=== PATIENT | male | born 1965 ===

== ENCOUNTER → 2020-02-26 13:52 | Outpatient (BNVA) | payer OTHER, SELFPAY | PROVIDERS: PCP Internal Medicine; Referring Provider Internal Medicine; Visit Provider Nurse Practitioner Family | DX: I48.0 Paroxysmal atrial fibrillation (principal); G47.33 Obstructive sleep apnea (adult) (pediatric); I51.7 Cardiomegaly; E66.9 Obesity, unspecified; Z68.36 Body mass index [BMI] 36.0-36.9, adult; Z79.899 Other long term (current) drug therapy | CPT/HCPCS: 99214 ==

== ENCOUNTER → 2021-03-15 14:33 | Outpatient (BNVA) | payer OTHER, SELFPAY | PROVIDERS: PCP Internal Medicine; Referring Provider Internal Medicine; Visit Provider Internal Medicine Cardiovascular Disease | DX: I51.7 Cardiomegaly (principal); I48.0 Paroxysmal atrial fibrillation; G47.33 Obstructive sleep apnea (adult) (pediatric); E66.9 Obesity, unspecified; Z68.36 Body mass index [BMI] 36.0-36.9, adult; Z99.89 Dependence on other enabling machines and devices; Z79.899 Other long term (current) drug therapy | CPT/HCPCS: 93005; 99212 ==

== ENCOUNTER → 2021-05-12 12:55 | Outpatient (REF) | payer OTHER, SELFPAY ==
--- NOTE | 2021-05-12 12:57 | CA_ITS ---
Transthoracic Echocardiogram Patient (Last, First, Middle): Naga Yusuf S Gender: Male Date of : 1965 Age: 56 Procedure Date: 05/12/2021 Procedure Type: Transthoracic Echocardiogram Location: OP Height: 172.72 cm Weight: 107.05 kg BSA: 2.19 m2 Heart Rate: bpm BP: 138 / 70 mmHg Ict Educator: BRIT Referring MD: Zachary Vital MD Symptoms: I48.0 - Paroxysmal atrial fibrillation Study Quality: Good ECG Rhythm: Sinus Conclusions: - The left ventricular systolic function is normal. The calculated ejection fraction is 65% by biplane method. - No obvious valvular pathology seen on this study. Findings Left Ventricle Normal left ventricular cavity size. The left ventricular systolic function is normal. The calculated ejection fraction is 65% by biplane method. There is no evidence of regional wall motion abnormalities. Diastolic function is normal for age. There is mild septal and mild basal asymmetric hypertrophy. Right Ventricle Normal right ventricular cavity size and systolic function. Atria Both atria are normal in size. Aortic Valve There is a normal trileaflet aortic valve. There is no aortic valve stenosis. There is no aortic valve regurgitation. Mitral Valve The mitral valve appears normal. There is trace mitral valve regurgitation. There is no mitral valve stenosis. Pulmonic Valve The pulmonic valve was not well visualized. Tricuspid Valve Normal tricuspid valve structure. There is trace tricuspid valve regurgitation. The pulmonary artery systolic pressure is normal. Great Vessels The aortic annulus, sinuses of valsalva, and asc aorta are normal in size. Venous The inferior vena cava is normal in size and collapses greater than 50% with inspiration. Pericardium/Pleural There is no evidence of pericardial effusion. Prior Study Comparison No significant change compared to prior study dated: 02/06/2018. Recommendations, Care & Conclusions No obvious valvular pathology seen on this study. Measurements 2D Linear Measurements IVSd: 1.03 0.6-0.9/0.6-1.0 cm LVIDd: 4.31 3.9-5.3/4.2-5.9 cm LVIDd Index: 1.97 2.4-3.2/2.2-3.1 cm/m2 LVIDs: 2.46 2.0-3.6 cm LVPWd: 0.86 0.7-1.1 cm Ao Root: 3.40 2.1-3.5 cm LA Diam: 3.10 2.7-3.8/3.0-4.0 cm LAIDs Index: 1.42 1.5-2.3 cm/m2 LV Mass: 164.00 67-162/88-224 g LV Mass Index: 74.88 43-95/49-115 g/m2 LVOT Diam: 2.00 3.0+(-)1.3 cm 2D Systolic Function EF 4C: 57.80 >55% EF 2C: 69.80 >55% EF BiP: 64.50 >55% Mitral Valve MV Pk E: 0.84 MV PK A: 0.69 MV Decel Time: 275.00 E/A: 1.20 E'Lateral: 9.90 E'Medial: 8.81 E/E' Med: 9.50 E/E' Lat: 8.40 PHT: 80.00 MVA PHT: 2.75 Decel [place]: 3.04 Aortic Valve AoV Pk Noe: 1.43 AoV Mn Noe: 0.94 AoV VTI: 0.30 AoV Pk Grad: 8.00 Aov Mn Grad: 4.00 ERIC Cont.VTI: 2.33 LVOT LVOT Pk Noe: 1.22 LVOT Mn Noe: 0.72 LVOT VTI: 0.22 LVOT Pk Grad: 6.00 LVOT Mn Grad: 3.00 LVOT Diam: 2.00 LVOT Area: 3.14 Diastolic Function MV Pk E: 0.84 MV Pk A: 0.69 E/A: 1.20 E'Medial: 8.81 E/E' Med: 9.50 E' Laterial: 9.90 E/E' Lat: 8.40 Right Ventricle TAPSE (mm): 2.44 TVS' Noe: 13.70 Tricuspid Valve TR Pk Noe: 1.68 TR Pk Grad: 11.00 RA Press: 3.00 RVSP: 14.00 Great Vessels Aorta Ao Root-2D: 3.40 2.0-3.7 cm Ao Asc: 3.00 2.1-3.4 cm Ao Arch: 2.80 Updated in Other Vendor System with Status of Final Ralf Rhodes MD electronically signed on 05/14/2021 2:33:32 PM with status of Final
== END ==
LOC: HO.CARD 12:55
PROVIDERS: Visit Provider Internal Medicine Cardiovascular Disease
DX: I48.0 Paroxysmal atrial fibrillation (principal)
CPT/HCPCS: 93306

== ENCOUNTER 2021-05-27 10:59 | Outpatient (REF) | payer OTHER, SELFPAY ==
[2021-05-27 12:00] LABS: Binax Internal Control QC Valid; Binax Now Covid-19 Ag Positive (Negative)
== END 2021-05-27 11:00 | disposition home or self-care (01) ==
LOC: HO.LAB 10:59
PROVIDERS: Visit Provider Internal Medicine
DX: Z20.822 Contact with and (suspected) exposure to COVID-19 (principal)
CPT/HCPCS: 36415; C9803

== ENCOUNTER → 2022-03-16 14:25 | Outpatient (BNVA) | payer OTHER, SELFPAY | PROVIDERS: Visit Provider Internal Medicine Cardiovascular Disease | DX: I48.0 Paroxysmal atrial fibrillation (principal) | CPT/HCPCS: 93005; 99212 ==

== ENCOUNTER 2024-02-18 14:49 | Outpatient (AMB) | payer OTHER, SELFPAY ==
--- NOTE | 2024-02-18 14:56 | MHC.OFFVIS ---
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 He said he lost primary care physician was not able to come for follow-up. He is taking his metoprolol, today is the last day. He has been using his CPAP regularly. He has no cardiac symptoms whatsoever. Continues to participate in regular physical activity but not regular exercise. He has not been able to lose much weight. Denies any exertional chest pain, shortness of breath. Denies any heart failure syndrome. Denies any prolonged palpitation irregular heartbeat. [facility] Medical History Obesity LVH (left ventricular hypertrophy) BRUNO (obstructive sleep apnea) Paroxysmal atrial fibrillation Family History Father Diabetes Mother HTN (hypertension) Social History Patient Tobacco Use Status: Never used Tobacco Review of Systems Const Denies chills, Denies fatigue, Denies fever(s), Denies frequent falls, Denies weakness, Denies weight gain and Denies weight loss ENT Denies dizziness Card Denies chest pain, Denies leg edema, Denies lightheadedness, Denies palpitations, Denies dyspnea, Denies dyspnea on exertion, Denies orthopnea and Denies other (loss of consciousness) Resp Denies cough, Denies dyspnea and Denies dyspnea on exertion GI Denies hematochezia and Denies change in stool character Musc Denies abnormal gait, Denies muscle weakness, Denies numbness, Denies radiating pain into limb and Denies tingling Neuro Denies abnormal gait, Denies dizziness, Denies frequent falls, Denies numbness, Denies tingling and Denies weakness Endo Denies fatigue and Denies palpitations Physical Exam Vital Signs: Last Vital Signs Pulse 69 02/18/24 14:57 BP 124/80 02/18/24 14:57 BMI result Body Mass Index 35.9 Const General: cooperative, healthy appearing, comfortable and no acute distress HEENT Head: Yes normal to inspection Eyes Sclerae: sclerae normal Neck Neck: Yes normal visual inspection and Yes no JVD Carotids: normal carotid upstroke Chest Chest palpation & inspection: normal inspection of the chest Resp Effort & Inspection: normal respiratory effort Auscultation: clear to auscultation bilaterally, no crackles, no rales, no rhonchi and no wheezes Cardio Jugular venous distension: no JVD Rate: regular rate Rhythm: regular rhythm Heart sounds: S1 normal heart sound present, S2 normal heart sound present, no gallops, no murmurs and no rubs Peripheral pulses: Peripheral pulses 2+ throughout GI Inspection: Yes normal to inspection Skin General skin exam: no rashes or lesions noted Extrem General: Yes normal to inspection, No no pedal edema and No calf tenderness Office Procedures EKG Details: EKG shows normal sinus rhythm with moderate voltage criteria for LVH [id number], Complete Assessment & Plan Assessment & Plan (1) Paroxysmal atrial fibrillation: Comment: History of paroxysmal atrial fibrillation, currently suppressed with metoprolol. Last echo 02/06/2018 shows normal EF, no valve abnormalities He had felt heart palpitations in the past with AFib. None in the last year. EKG today confirms sinus rhythm. Continue on metoprolol at current dose. Chads Vasc score of 0. Full anticoagulation is not indicated. Discussed probable future anticoagulation use with him. Continue aspirin at present. Code(s): I48.0 - Paroxysmal atrial fibrillation Category: Medical Plan: Highly symptomatic paroxysmal atrial fibrillation without any obvious clinical recurrence. Has done extremely well with rhythm control approach will continue pursue rhythm control approach. No indication for antiarrhythmic drug therapy at this point time. Continue metoprolol therapy. Avoidance of stimulants was discussed. CPAP therapy is the most beneficial to him with much improved overall quality of life. Continue CPAP therapy. Last echocardiogram showed no significant evidence of LVH by echocardiogram could have improved as a result of CPAP therapy as well. He is encouraged to continue to participate in regular physical activity and participate in weight loss program. Avoidance of stimulants was discussed. There is no indication for aspirin therapy in his been advised to discontinue the same. Will obtain an echocardiogram near future. Will follow up in the clinic in 1 year's time, sooner p.r.n.. Thank you for allowing me to partake in his care Orders: Orders CA echo transthoracic complete Today I48.0 - Paroxysmal atrial fibrillation Medications: Refilled metoprolol succinate ER keep cardiology appnt on 02/18/24 25 mg PO DAILY 90 tabs 3RF Coding Level of Care Code Est Pt Level 4 (02965) Diagnoses Paroxysmal atrial fibrillation I48.0 CPT Codes EKG - CPT: 22836-[id number], Complete ([id number])
[2024-02-18 14:57] VITALS: BP 124/80; PULSE 69; BMI 35.9
== END 2024-02-18 15:11 | disposition home or self-care (01) ==
PROVIDERS: PCP Internal Medicine; Visit Provider Internal Medicine Cardiovascular Disease
DX: I48.0 Paroxysmal atrial fibrillation (principal)
CPT/HCPCS: 93010; 99214

== ENCOUNTER → 2024-02-18 14:49 | Outpatient (BNVA) | payer MEDICAID, SELFPAY | PROVIDERS: PCP Internal Medicine; Visit Provider Internal Medicine Cardiovascular Disease | DX: I48.0 Paroxysmal atrial fibrillation (principal) | CPT/HCPCS: 93005; 99212 ==

== ENCOUNTER → 2024-03-06 14:50 | Outpatient (REF) | payer OTHER, SELFPAY ==
--- NOTE | 2024-03-06 14:53 | CA_ITS ---
Transthoracic Echocardiogram Patient (Last, First, Middle): Naga Yusuf S Gender: Male Date of : 1965 Age: 59 Procedure Date: 03/06/2024 Procedure Type: Transthoracic Echocardiogram Location: OP Height: 170. cm Weight: 106.6 kg BSA: 2.16 m2 Heart Rate: 68 bpm BP: 110 / 75 mmHg Cone Tender: KRISTIAN Referring MD: Zachary Vital MD Symptoms: I48.0 - Paroxysmal atrial fibrillation Study Quality: Adequate ECG Rhythm: Sinus Conclusions: - The left ventricular systolic function is normal. The calculated ejection fraction is 63% by biplane method. - No obvious valvular pathology seen on this study. Findings Left Ventricle Normal left ventricular cavity size. There is mildly increased left ventricular wall thickness. The left ventricular systolic function is normal. The calculated ejection fraction is 63% by biplane method. There is no evidence of regional wall motion abnormalities. Diastolic function is normal for age. LV peak GLS -21.7%. Right Ventricle Normal right ventricular cavity size and systolic function. Atria Both atria are normal in size. Aortic Valve There is a normal trileaflet aortic valve. There is no aortic valve stenosis. There is no aortic valve regurgitation. Mitral Valve The mitral valve appears normal. There is trace mitral valve regurgitation. There is no mitral valve stenosis. Pulmonic Valve The pulmonic valve is likely normal. Tricuspid Valve There is trace tricuspid valve regurgitation. There is no evidence of pulmonary hypertension. Great Vessels The asc aorta is normal in size. Venous The inferior vena cava is normal in size and collapses greater than 50% with inspiration. Pericardium/Pleural There is no evidence of pericardial effusion. Prior Study Comparison No significant change compared to prior study dated: 05/12/2021. Recommendations, Care & Conclusions No obvious valvular pathology seen on this study. Measurements 2D Linear Measurements IVSd: 1.21 0.6-0.9/0.6-1.0 cm LVIDd: 3.56 3.9-5.3/4.2-5.9 cm LVIDd Index: 1.65 2.4-3.2/2.2-3.1 cm/m2 LVIDs: 2.13 2.0-3.6 cm LVPWd: 1.10 0.7-1.1 cm LA Diam: 2.80 2.7-3.8/3.0-4.0 cm LAIDs Index: 1.30 1.5-2.3 cm/m2 LV Mass: 163.43 67-162/88-224 g LV Mass Index: 75.66 43-95/49-115 g/m2 LVOT Diam: 2.10 3.0+(-)1.3 cm 2D Systolic Function EF 4C: 53.80 >55% EF 2C: 69.60 >55% EF BiP: 63.30 >55% Mitral Valve MV Pk E: 0.84 MV PK A: 0.78 MV Decel Time: 229.00 E/A: 1.10 E'Lateral: 9.68 E'Medial: 8.38 E/E' Med: 10.10 E/E' Lat: 8.70 PHT: 67.00 MVA PHT: 3.[address] [place]: 3.69 Aortic Valve AoV Pk Noe: 1.43 AoV Mn Noe: 0.96 AoV VTI: 0.31 AoV Pk Grad: 8.00 Aov Mn Grad: 4.00 ERIC Cont.VTI: 2.66 LVOT LVOT Pk Noe: 1.26 LVOT Mn Noe: 0.73 LVOT VTI: 0.24 LVOT Pk Grad: 6.00 LVOT Mn Grad: 3.00 LVOT Diam: 2.10 LVOT Area: 3.46 Diastolic Function MV Pk E: 0.84 MV Pk A: 0.78 E/A: 1.10 E'Medial: 8.38 E/E' Med: 10.10 E' Laterial: 9.68 E/E' Lat: 8.70 Right Ventricle TAPSE (mm): 28.60 TVS' Noe: 12.70 Great Vessels Aorta Sinus of Valsalva: 3.50 2.0-3.5 cm Ao Asc: 3.30 2.1-3.4 cm Pulmonary Valve PV Pk Noe: 1.47 Peak PV Grad: 9.00 Updated in Other Vendor System with Status of Final Ralf Rhodes MD electronically signed on 03/07/2024 6:33:11 PM with status of Final
== END ==
LOC: HO.CARD 14:50
PROVIDERS: PCP Internal Medicine; Visit Provider Internal Medicine Cardiovascular Disease
DX: I48.0 Paroxysmal atrial fibrillation (principal)
CPT/HCPCS: 93306; 93356

== ENCOUNTER → 2024-03-06 14:53 | Outpatient (BNV) | payer OTHER, SELFPAY | PROVIDERS: PCP Internal Medicine; Visit Provider Internal Medicine | DX: I48.0 Paroxysmal atrial fibrillation (principal) | CPT/HCPCS: 93306; 93356 ==

== ENCOUNTER 2024-03-07 14:24 | Outpatient (AMB) | payer OTHER, SELFPAY ==
--- NOTE | 2024-03-07 14:29 | A.OFFVIS_ITS ---
Vital Signs 3 03/07/24 14:33 Height 5 ft 8 in Weight 231 lb 7.766 oz BMI 35.2 BP 125/74 Blood Pressure Location Lt brachial Position Sitting Pulse 75 Intake Visit Reasons: colonoscopy screening Intake Note: New patient in office today for colonoscopy screening. CC: Patient c/o constipation, denies other GI concerns today. Allergies No Known Allergies Allergy (Verified 03/07/24 14:37) HPI HPI colonoscopy screening: Details: 69-year-old male here for preprocedural meeting to discuss a screening colonoscopy. He is referred by [facility]. Pjenaro Gaines BRUNO Paroxysmal atrial fibrillation * SURGICAL HISTORY -I--[id number]-[id number] -[id number]-a- -[id number]-m-[id number]-a-i-r- Ventral hernia repair * ALLERGIES:NKDA * [employer] LABS: none TODAY'S VISIT He tells me that he has been having pain just to the left of the umbilicus. We will get US. He denies any trauma, fevers chills, nausea vomiting to explain the pain. Since he does have a large ventral hernia scar we will get an ultrasound to see if there is any reason to think it related to a hernia. He does suffer occasional constipation but he says this clears well if he eats oatmeal. It is also possible this is gas trapping. He has never had this pain before and has only persisted for the past week. He can not describe the quality of the pain and the intensity he says is quite mild. He can not really identify any exacerbating remitting factors except that it is worse when he pushes on the area. This is his first colonoscopy. His afib is controlled on metoprolol and he denies respiratory problems or anticoag therapy. There are no prior problems with anesthesia or sedation. No ID problems. He had 2 paternal cousins with CRC, but no known 1st degree relatives. Return office visit after the ultrasound of course after the colonoscopy. [facility] Medical History (Updated 03/07/24 @ 15:07 by Sugar Gifford, ANP-C) Obesity LVH (left ventricular hypertrophy) BRUNO (obstructive sleep apnea) Paroxysmal atrial fibrillation Surgical History (Updated 03/07/24 @ 14:38 by NANDO Mcclendon) H/O eye surgery H/O inguinal hernia repair Family History (Updated 03/07/24 @ 14:39 by NANDO Mcclendon) Father Diabetes Mother HTN (hypertension) Brother Tongue cancer Leukemia Social History (Updated 03/07/24 @ 14:40 by NANDO Mcclendon) Alcohol intake: current Alcohol intake frequency: holidays/special occasions only Patient Tobacco Use Status: Never used Tobacco Use of substances other than those prescribed or required for medical reasons: No Review of Systems Const Denies fatigue, Denies fever(s), Denies night sweats, Denies poor appetite and Denies weight loss Eyes Details: Glasses Reports requires corrective lenses ENT Reports Normal hearing present, Denies dental pain, Denies dysphagia, Denies hearing loss, Denies mouth pain, Denies odynophagia, Denies throat swelling, Denies tongue swelling and Reports other (Dentition adequate) Card Reports no additional complaints Resp Reports no additional complaints GI Details: Reports abdominal pain, Denies melena, Denies bloating, Denies hematochezia, Reports constipation, Denies GI cramping, Denies dysphagia, Denies excessive flatus, Denies early satiety, Denies heartburn, Denies diarrhea, Denies nausea, Denies odynophagia, Denies vomiting and Denies hematemesis Skin/Breast Denies pruritus, Denies lesions, Denies rash and Denies jaundice Neuro Reports Normal hearing present and Denies Abnormal speech present Endo Denies fatigue Aller/Immun Denies throat swelling and Denies tongue swelling Physical Exam Vital Signs: Last Vital Signs Pulse 75 03/07/24 14:33 BP 125/74 03/07/24 14:33 BMI result Body Mass Index 35.2 Const General: cooperative, no acute distress, well developed and well groomed Nutritional Appearance: well nourished and obese centrally obese Orientation/consciousness: oriented to person, oriented to place and oriented to time Limitations: No language barrier HEENT Head: Yes normocephalic and Yes atraumatic Eyes General: appearance normal, both eyes and all related structures Pupils: Equal, round and reactive pupils present Neck Neck: Yes normal visual inspection and Yes no lymphadenopathy Thyroid: Thyroid normal Resp Effort & Inspection: normal respiratory effort and able to speak in complete sentences Auscultation: clear to auscultation bilaterally Cardio Rate: regular rate Rhythm: regular rhythm Heart sounds: Normal, physiologic split S2 sound present Peripheral pulses: radial pulses present and posterior tibial pulses present GI Inspection: No distended, No Abdominal panniculus present and Yes obesity Palpation (GI): Soft to palpation, Tenderness to palpation present (GI) periumbilically, no guarding, not rigid and No hepatosplenomegaly present Percussion: Yes normal to percussion Auscultation: normal bowel sounds Rectal Exam - Male: Yes deferred Abdomen image: 2 1. surgical scar Skin General skin exam: no rashes or lesions noted, turgor normal, skin not dry, no jaundice, No spider nevi and no striae Rashes: no rashes Nails: normal Neuro General: oriented to person, oriented to place and oriented to time Cranial nerves: Yes Equal, round and reactive pupils present and Yes Normal hearing present Speech: No Abnormal speech present Extrem General: Yes normal to inspection, No clubbing, No cyanosis and No edema Psych Appearance: grossly normal and well kempt Mental Status: mental status grossly normal Speech and movement: Normal speech and movement present Affect: normal affect Attitude: cooperative Thought process: Normal thought process present and not confabulating Thought content: Normal thought content present Insight: Limited insight present (Psych) Judgement: Limited judgement present (Psych) Assessment & Plan Assessment & Plan (1) Pre-op examination: Code(s): Z01.818 - Encounter for other preprocedural examination Category: Medical (2) Umbilical pain: Code(s): R10.33 - Periumbilical pain Category: Medical (3) BRUNO (obstructive sleep apnea): Comment: He reports nightly compliance with his CPAP. Need for ongoing use of CPAP reviewed Code(s): G47.33 - Obstructive sleep apnea (adult) (pediatric) Category: Medical (4) Paroxysmal atrial fibrillation: Comment: History of paroxysmal atrial fibrillation, currently suppressed with metoprolol. Last echo 02/06/2018 shows normal EF, no valve abnormalities He had felt heart palpitations in the past with AFib. None in the last year. EKG today confirms sinus rhythm. Continue on metoprolol at current dose. Chads Vasc score of 0. Full anticoagulation is not indicated. Discussed probable future anticoagulation use with him. Continue aspirin at present. Code(s): I48.0 - Paroxysmal atrial fibrillation Category: Medical Plan He tells me that he has been having pain just to the left of the umbilicus. We will get US. He denies any trauma, fevers chills, nausea vomiting to explain the pain. Since he does have a large ventral hernia scar we will get an ultrasound to see if there is any reason to think it related to a hernia. He does suffer occasional constipation but he says this clears well if he eats oatmeal. It is also possible this is gas trapping. He has never had this pain before and has only persisted for the past week. He can not describe the quality of the pain and the intensity he says is quite mild. He can not really identify any exacerbating remitting factors except that it is worse when he pushes on the area. This is his first colonoscopy. His afib is controlled on metoprolol and he denies respiratory problems other than BRUNO and he denies anticoag therapy. There are no prior problems with anesthesia or sedation. No ID problems. He had 2 paternal cousins with CRC, but no known 1st degree relatives. Return office visit after the ultrasound of course after the colonoscopy. Orders: Orders 2 Complete Blood Count Auto Diff Today Z01.818 - Encounter for other preprocedural examination Colonoscopy - GI Use Only Today Z01.818 - Encounter for other preprocedural examination US abdomen complete Today R10.33 - Periumbilical pain Comprehensive Met. Panel Today Z01.818 - Encounter for other preprocedural examination Medications: New 2 sodium,potassium,mag sulfates 17.5-3.13-1.6 gram (Suprep Bowel Prep Kit) 480 mL orally; FOR COLONOSCOPY PREP 354 mL 0RF Coding Level of Care Code New Pt Level 3 (48157) Diagnoses Pre-op examination Z01.818 Umbilical pain R10.33 BRUNO (obstructive sleep apnea) G47.33 Paroxysmal atrial fibrillation I48.0
[2024-03-07 14:33] VITALS: BP 125/74; PULSE 75; BMI 35.2
== END 2024-03-07 15:30 | disposition home or self-care (01) ==
PROVIDERS: PCP Internal Medicine; Visit Provider Nurse Practitioner
DX: Z01.818 Encounter for other preprocedural examination (principal); R10.33 Periumbilical pain; G47.33 Obstructive sleep apnea (adult) (pediatric); I48.0 Paroxysmal atrial fibrillation
CPT/HCPCS: 99203

== ENCOUNTER → 2024-03-07 14:24 | Outpatient (BNVA) | payer OTHER, SELFPAY | PROVIDERS: PCP Internal Medicine; Visit Provider Nurse Practitioner ==

== ENCOUNTER 2024-03-18 08:53 | Outpatient (REF) | payer OTHER, SELFPAY ==
--- NOTE | ~2024-03-18 | US_ITS ---
EXAMINATION: US ABDOMEN LIMITED CLINICAL INFORMATION: Periumbilical pain. Rule out hernia. COMPARISON: None available. TECHNIQUE: Real-time imaging of the periumbilical area to left lower quadrant. FINDINGS: The area of interest in the abdominal wall and periumbilical region scanned revealing no mass, cyst or hernia found. US/US abdomen limited IMPRESSION: No hernia found by ultrasound. No ultrasound explanation for patient's symptoms, no hernia found, if there is high clinical suspicion consider correlation with cross-sectional imaging CT scan or MRI. Electronically signed by: Vilma Lorenzo MD 04/06/2024 05:36 PM EST
== END 2024-03-18 08:54 | disposition home or self-care (01) ==
LOC: HO.US 08:53
PROVIDERS: PCP Internal Medicine; Visit Provider Nurse Practitioner
DX: R10.33 Periumbilical pain (principal)
CPT/HCPCS: 76705

== ENCOUNTER 2024-04-07 08:13 | Outpatient (REF) | payer OTHER, SELFPAY ==
[2024-04-07 14:09] LABS: MANUAL DIFF FLAG NO
[2024-04-07 14:29] LABS: Estimated Average Glucose 114 mg/dL; Hemoglobin A1C 133.7678 umol/L; Hemoglobin A1c % 5.6 % (<6.0); Total Hemoglobin (HGBA1C) 3552.5155 umol/L
[2024-04-07 14:33] LABS: Basophils Absolute Auto 0.1 X10*3/uL (0.0-0.2); Basophils Percent Auto 0.8 % (0-2); Eosinophils Absolute Auto 0.3 X10*3/uL (0.0-0.4); Eosinophils Percent Auto 4.9 % (0-4); Hematocrit 40.8 % (42.0-52.0); Hemoglobin 13.4 g/dl (14.0-18.0); Imm Gran Abs Auto 0.02 X10*3/uL (0.00-0.03); Imm Gran Pct Auto 0.3 % (0.0-0.4); Lymphocytes Absolute Auto 1.6 X10*3/uL (1.2-4.9); Mean Corpuscular HGB Conc 32.8 g/dl (31.0-36.0); Mean Corpuscular Hemoglobin 31.3 pg (27.0-33.0); Mean Corpuscular Volume 95.3 fL (80.0-98.0); Mean Platelet Volume 13.6 fL (9.4-12.4); Monocytes Absolute Auto 0.5 X10*3/uL (0.1-1.2); Monocytes Percent Auto 8.1 % (2-11); Neutrophils Absolute Auto 4.1 x10*3/uL (2.0-8.3); Neutrophils Percent Auto 61.9 % (45-73); Platelet Count 139 X10*3/uL (160-400); Red Blood Count 4.28 X10*6/uL (4.60-5.80); Red Cell Distribution Width 14.3 % (11.0-16.0); White Blood Count 6.6 X10*3/uL (4.8-10.8)
[2024-04-07 14:51] LABS: Alanine Aminotransferase 29 U/L (0-40); Albumin Level 3.9 g/dL (3.5-5.0); Alkaline Phosphatase 58 U/L (39-117); Anion Gap 11 (12-20); Aspartate Amino Transferase 29 U/L (5-37); Bilirubin Total 0.4 mg/dL (0.0-1.0); Blood Urea Nitrogen 18 mg/dL (9-16); Carbon Dioxide 26 mmol/L (22-29); Chloride 106 mmol/L (96-108); Cholesterol 187 mg/dL (<200); Estimated Glomerular Filt Rate 57; Glucose Random 93 mg/dL (60-115); HDL Cholesterol 41 mg/dL (>40); LDL Cholesterol Calculated 112 mg/dL (<100); Potassium 3.6 mmol/L (3.3-5.1); Sodium 139 mmol/L (135-145); Total Protein 6.9 g/dL (6.5-8.0); Triglycerides 174 mg/dL (<150)
[2024-04-07 14:54] LABS: PSA,Total (Free>4and<10) 0.69 ng/mL (0.00-4.00)
[2024-04-08 04:13] LABS: HIV AB/AG Nonreactive (Nonreactive); HIV Num 1 0.06 S/CO (0.00-0.99); ~HepC Num1 0.13 S/CO (0.00-0.79); ~Hepatitis C Antibody Nonreactive (Nonreactive)
== END 2024-04-07 08:14 | disposition home or self-care (01) ==
LOC: HO.CHCLDS 08:13
PROVIDERS: Visit Provider Internal Medicine
DX: E66.9 Obesity, unspecified (principal); Z12.5 Encounter for screening for malignant neoplasm of prostate; Z13.1 Encounter for screening for diabetes mellitus
CPT/HCPCS: 36415; 80053; 80061; 83036; 84153; 84443; 85025; 86803; 87389

== ENCOUNTER 2024-07-02 07:24 | Day surgery (SDC) | payer OTHER, SELFPAY ==
[2024-06-30 14:37] VITALS: BMI 35.1
--- NOTE | 2024-07-01 08:47 | P.CONAN_ITS ---
Documented by User: Kaylie Ray NP 07/01/24 08:48 HPI - Anesthesia Eval Consult details Narrative: 59yo M for Colonoscopy Follows [facility] Cardiology for PAF. Stable at 01/2024 office visit PMFSH Active Problems Active Problems: All Active Problems Umbilical pain (Acute) Pre-op examination (Acute) Obesity (Acute) LVH (left ventricular hypertrophy) (Acute) BRUNO (obstructive sleep apnea) (Acute) Paroxysmal atrial fibrillation (Acute) Past Medical History Medical History Obesity LVH (left ventricular hypertrophy) BRUNO (obstructive sleep apnea) Paroxysmal atrial fibrillation Family History Family History Father Diabetes Mother HTN (hypertension) Brother Tongue cancer Leukemia Surgical History Surgical History H/O eye surgery H/O inguinal hernia repair Social History Social History Alcohol intake: current Alcohol intake frequency: does not drink Patient Tobacco Use Status: Never used Tobacco Use of substances other than those prescribed or required for medical reasons: No Are you DNR?: No Advance Directives: No Advance Directives Information Provided: Yes Meds Allergies Allergy/AdvReac Type Severity Reaction Status Date / Time No Known Allergies Allergy Verified 03/07/24 14:37 Home Medications ?Medication ?Instructions ?Recorded ?Confirmed ?Last Taken ?Type aspirin 81 mg tablet,delayed 81 mg PO DAILY 03/07/24 07/02/24 07/01/24 History release (Adult Aspirin Regimen) Exam Height,Weight and Vital Signs: Height 5 ft 8 in Weight 104.78 kg Narrative Narrative: EKG 01/2024 EKG Details: EKG shows normal sinus rhythm with moderate voltage criteria for LVH ECHO 02/2024 Conclusions: - The left ventricular systolic function is normal. The calculated ejection fraction is 63% by biplane method. - No obvious valvular pathology seen on this study. Findings Left Ventricle Normal left ventricular cavity size. There is mildly increased left ventricular wall thickness. The left ventricular systolic function is normal. The calculated ejection fraction is 63% by biplane method. There is no evidence of regional wall motion abnormalities. Diastolic function is normal for age. LV peak GLS -21.7%. Assessment and Plan Assessment Anesthesia Assessment: Chart Reviewed Documented by User: Ani Peralta MD 07/02/24 08:19 [facility] Past Medical History Medical History Obesity LVH (left ventricular hypertrophy) BRUNO (obstructive sleep apnea) Paroxysmal atrial fibrillation Family History Family History Father Diabetes Mother HTN (hypertension) Brother Tongue cancer Leukemia Family history of problems with anesthesia: No Surgical History Surgical History H/O eye surgery H/O inguinal hernia repair History of Problems with Anesthesia: No Social History Social History Alcohol intake: current Alcohol intake frequency: does not drink Patient Tobacco Use Status: Never used Tobacco Use of substances other than those prescribed or required for medical reasons: No Are you DNR?: No Advance Directives: No Advance Directives Information Provided: Yes Meds Allergies Allergy/AdvReac Type Severity Reaction Status Date / Time No Known Allergies Allergy Verified 03/07/24 14:37 Home Medications ?Medication ?Instructions ?Recorded ?Confirmed ?Last Taken ?Type aspirin 81 mg tablet,delayed 81 mg PO DAILY 03/07/24 07/02/24 07/01/24 History release (Adult Aspirin Regimen) Exam Airway Mallampati Class: III TM Dist: >3cm Neck ROM: Full Heart: sr Lungs: cta Assessment and Plan Assessment Anesthesia Assessment: Anesthesia Plan Discussed Final Anesthetic Review Family History of Problems with Anesthesia: No History of Problems with Anesthesia: No NPO: Yes ASA Class: III Final Preanesthetic Review: No Changes in Pt Med Stat, Meds/Allgs Chart Reviewed, Consent Obtained/Reviewed and Anes Risks/Benef Reviewed Patient Risk: Intermediate Procedure Risk: Low Anesthetic Plan Anesthetic Plan: MAC: Disposition: Standard PACU
--- OUTSIDE RECORDS SUMMARY | 2024-07-02 07:27 | XMS_ITS | Clinical Summary ---
Author Organization [employer] Address [address] [place] [address] Care Team Providers Care Title I Assistant Name Role Phone Zachariah Lopez MD Primary Care Prov ider Allergies No known active allergies Medications aspirin 81 MG EC tablet Take 81 mg by mouth Once per day. Active metoprolol succinate XL (Toprol-XL) 25 MG 24 hr tablet Take 25 mg by mouth Once per day. Do not crush or chew. Active triamcinolone (Kenalog) 0.1 % cream Apply topically if needed in the morning and at bedtime (pain and swelling). 30 g 5 Active atorvastatin (Lipitor) 40 MG tablet Take 1 tablet (40 mg) by mouth Once per day. 30 tablet 11 4 04/15/20 25 Active Active Problems Problem Noted Date Diagnosed Date Mixed hyperlipidemia 04/15/2024 Assessment & Plan (04/15/2024 1:55 PM EST): Ascvd score 8.0%, will start on atorvastatin 40mg, risk vs benefits discussed, will follow up in 3 months Dermatitis 04/15/2024 Assessment & Plan (04/15/2024 1:56 PM EST): Will provide triamcinolone, call back if not improving Obesity (BMI 35.0-39.9 without comorbidity) 03/21 Assessment & Plan (04/03/2024 6:47 PM EST): New labs order placed to rule out secondary conditions Prostate cancer screening 04/03/2024 Encounter for medical examination to establish c are 12/18/2023 Assessment & Plan (12/18/2023 9:11 AM EDT): Patient refers last pcp follow up over 2 yrs Hospitalized >12yrs due to episode of arrythmia ER visit 6 month ago due to headaches Pmh: arrythmia, sleep apnea Psh: inguinal hernia repair on 2004 Meds: metoprolol succinate 25mg daily, asa 81mg, centrum OTC Followed by cardiology at [place], will place referral Needs screening colon cancer and prostate cancer Palpitations 12/18/2023 PAF (paroxysmal atrial fibrillation) 12/18/2023 Assessment & Plan (04/03/2024 6:46 PM EST): Followed by cardiology, on aspirin and metoprolol, Assessment & Plan (12/18/2023 9:12 AM EDT): Chadvasc 0 points, followed y cardiology, on asa 81mg, will place referral for follow up BRUNO (obstructive sleep apnea) 12/18/2023 Assessment & Plan (12/18/2023 9:13 AM EDT): Uses sleep apnea machine, reinforced importance of treatment Screening for colon cancer 12/18/2023 Assessment & Plan (12/18/2023 9:13 AM EDT): Will place gastroenterology referral Encounters Date Type Department Care Team Description 04/15/2024 1:30 PM EST Telemedicine [facility] [address] [place] [address] Zachariah Lopez MD Mixed hyperlipidemia (Primary Dx); Dermatitis 04/15/2024 Travel 04/14/2024 Telephone [facility] [address] [facility] [place] [address] Zachariah Lopez MD Chart Prep 04/08/2024 Telephone [facility] [address] [place] [address] Zachariah Lopez MD 04/03/2024 1:45 PM EST Office Visit [facility] [address] [facility] [place] [address] Zachariah Lopez MD Obesity (BMI 35.0-39.9 without comorbidity) (Primary Dx); Encounter for immunization; Dietary counseling; Exercise counseling; Prostate cancer screening; PAF (paroxysmal atrial fibrillation) (CMS/HCC) 04/03/2024 Travel from Last 3 Months Immunizations Name Administration Dates Next Due Pfizer Covid-19 Vaccine 12+ 10/03/2020, Pfizer Covid-19 Vaccine 12+ Bivalent 05/02/2022 Tdap 04/03/2024,04/17/2012 Family History Medical History Relation Name Comments Leukemia Brother Tongue cancer Brother Diabetes Father Hypertension Father Hypertension Mother Osteoporosis Mother Relation Name Status Comments Brother Father Mother Social History Tobacco Use Types Packs/Day Years Used Date Smoking Tobacco: Never Passive Smoke Exposure: Never Smokeless Tobacco: Never Tobacco Cessation:Counseling Given: Not Answered Alcohol Use Standard Drinks/Week Comments Yes 0 (1 standard drink = 0.6 oz pur e alcohol) socially vodka Depression Answer Date Recorded Patient Health Questionnaire-9 Score 0 04/03/2024 Patient Health Questionnaire-9 Score 0 04/03/2024 Last PHQ-9: Questionnaire Data Not on file 1 06/03/2023 Housing Stability Answer Date Recorded What is your housing situation today? I have mila krause 03/27/[address] you li ve. Do you have problems with any of the following? None of the above 03/27/2024 Food Insecurity Answer Date Recorded Within the past 12 months, y ou worried that your food would run out before you got money to buy more: Never True 03/27/2024 Within the past 12 months,th e food you bought just didn't last and you didn't have enough money to get more: Never True 11/2023 Transportation Answer Date Recorded In the past 12 months, has l ack of transportation kept you from medical appts, meetings, work or from getting things needed for daily living? No 03/27/2024 Utilities Answer Date Recorded In the past 12 months, has t he electric, gas, oil or water company threatened to shut off services in your home? No 03/27/2024 Depression Answer Date Recorded Patient Health Questionnaire-2 Score 0 04/03/2024 Internet Access Answer Date Recorded Internet Access Q1 Yes 03/27/2024 Internet Access Q2 Not on file 03/27/2024 Sex and Gender Information Value Date Recorded Sex Assigned at Male 05/02/2022 3:57 PM EST Legal Sex Male 3:53 PM EST Gender Identity Male 05/02/2022 3:57 PM EST Sexual Orientation Don't know 03/06/2023 3: 03 PM EDT Last Filed Vital Signs Vital Sign Reading Time Taken Comments Blood Pressure 129/77 04/03/2024 1:54 PM EST Pulse 64 04/03/2024 1:54 PM EST Temperature 36.1 ??C (97 ??F) 04/03/2024 1:54 PM EST Respiratory Rate 16 04/03/2024 1:54 PM EST Oxygen Saturation 98% 03/06/2023 3:32 PM EDT Inhaled Oxygen Concentration - - Weight 105 kg (230 lb 9.6 oz) 04/03/2024 1:54 PM EST Height 172.7 cm (5' 8 ) 04/03/2024 1:54 PM EST Body Mass Index 35.06 04/03/2024 1:54 PM EST Plan of Treatment Health Maintenance Due Date Last Done Comments CT Colonography 1966 Colonoscopy 1966 Colorectal Cancer Screening 1966 FIT DNA/Cologuard 1966 FIT 1966 FOBT 1966 Sigmoidoscopy 1966 Alcohol/Substance Use Screening 1978 Hepatitis B Vaccines (1 of 3 - 19+ 3-dose series) 1985 Pneumococcal Vaccine: 50+ Years (1 of 1 - PCV) 02/23/2016 Zoster Vaccines (1 of 2) 02/23/2016 COVID-19 Vaccine (4 - 2023-2 5 season) 2024 05/02/2022, 10/03/2020, 09/12/2020 Influenza Vaccine (#1) 2024 Depression Screening 04/03/2025 04/03/2024, 04/03/2024 SDOH Screening 04/03/2025 04/03/2024 Tobacco Screening 04/03/2025 04/03/2024 Lipid Panel 04/07/2029 04/07/2024 DTaP/Tdap/Td Vaccines (3 - T d or Tdap) 04/03/2034 04/03/2024, 04/17/2012 RSV Patients and Patients Aged 60 years or older (1 - 1-dose 75+ series) 2041 HIV Screening Completed 04/07/2024 Hepatitis C Screening Completed 04/07/2024 HIB Vaccines Aged Out No longer eligi ble based on patient's age to complete this topic HPV Vaccines Aged Out No longer eligi ble based on patient's age to complete this topic Hepatitis A Vaccines Aged Out No long er eligible based on patient's age to complete this topic IPV Vaccines Aged Out No longer eligi ble based on patient's age to complete this topic Meningococcal Vaccine Aged Out No lachelle john eligible based on patient's age to complete this topic Pneumococcal Vaccine: Pediatrics (0 to 5 Years) and At-Risk Patients (6 to 49) Years) Aged Out No longer eligible b ased on patient's age to complete this topic RSV under 20 months Aged Out No longe r eligible based on patient's age to complete this topic Rotavirus Vaccines Aged Out No longer eligible based on patient's age to complete this topic Procedures Procedure Name Priority Date/Time Associated Diagnosis Comments PSA, TOTAL WITH REFLEX TO PSA, FREE Routine 04/07/2024 8:45 AM EST Prostate cancer screening HEMOGLOBIN A1C Routine 04/07/2024 8:45 AM EST Obesity (BMI 35.0-39.9 without comorbidity) TSH W/REFLEX TO FT4 Routine 04/07/2024 8 :15 AM EST Obesity (BMI 35.0-39.9 without comorbidity) LIPID PANEL, STANDARD Routine 04/07/2024 8:15 AM EST Obesity (BMI 35.0-39.9 without comorbidity) COMPREHENSIVE METABOLIC PANEL Routine 04/07/2024 8:15 AM EST Obesity (BMI 35.0-39.9 without comorbidity) CBC WITH AUTO DIFFERENTIAL Routine 04/07/2024 8:15 AM EST Obesity (BMI 35.0-39.9 without comorbidity) HEPATITIS C AB W/REFL TO HCV RNA, QN, PCR Routine 04/07/2024 8:05 AM EST Obesity (BMI 35.0-39.9 without comorbidity) HIV 1/2 ANTIGEN/ANTIBODY, FOURTH GENERATION W/RFL Routine 04/07/2024 8:05 AM EST Obesity (BMI 35.0-39.9 without comorbidity) from Last 3 Months Results * PSA, Total With Reflex to PSA, Free (04/07/2024 8:45 AM EST) PSA,Total (Free>4and<10) 0.69 0.00 - 4.00 ng/mL [facility] Comment:A Free PSA was not p erformed: The percentage of Free PSA can be used to enhance the differentiation of prostate cancer from benign prostatic disease in subjects whose PSA levels are between 4.0 and 10.0 ng/mL. For subjects whose PSA levels are below 4.0 or above 10.0 ng/mL, the risk of prostate cancer is determined on the basis of the PSA alone. Therefore the % Free PSA is recommended only for those subjects whose PSA levels are between 4.0 and 10.0 ng/mL.PSA methodology: Gallagher Alinity i ChemiluminescentMicroparticle Immunoassay (CMIA) 04/07/2024 8:45 AM EST 04/07/2024 2:04 PM EST us Zachariah Villa MD LAB BLOOD ORDERABL ES Final Result [facility] [address] [place] [phone] * Hemoglobin A1c (04/07/2024 8:45 AM EST) Hemoglobin A1c 5.6 <6.0 % [facility] Comment:Hemoglobin A1C Refer ence Range Adults: 4.8 - 6.0 % Non diabetic: < 6.0 % Goal: < 7.0 %Additional Action Suggested: > 8.0 %Note: Hemoglobin A1c results are invalid for patients with abnormal amounts of HbF. Blood transfusions may impact the HbA1c concentration in the patient sample. Estimated Average Glucose 114 mg/dL [facility] Comment:eAG = Estimated ave rage glucose which is %A1C expressed asaverage glucose, using the formula of the [id number]-[id number] Glucose study (ADAG), Diabetes Care, Vol.31,#8,Dec. 2007 Blood Venous blood specimen / Unknown 04/07/2024 8:45 AM EST 04/07/2024 2:04 PM EST Zachariah Villa MD LAB BLOOD ORDERABL ES Final Result Performing Organization Address [facility] Co de Phone Number [facility] [address] [place] [phone] * TSH W/Reflex to FT4 (04/07/2024 8:15 AM EST) Pathologist [facility] TSH reflex Free T4 1.50 0.32 - 4.0 uIU/mL [facility] Blood Venous blood specimen / Unknown 04/07/2024 8:15 AM EST 04/07/2024 2:04 PM EST Zachariah Villa MD LAB BLOOD ORDERABL ES Final Result Performing Organization Address [facility] de Phone Number [facility] [address] [place] [phone] * (ABNORMAL) CBC auto differential (04/07/2024 8:15 AM EST) White Blood Count 6.6 4.8 - 10.8 X10*3/uL [facility] Red Blood Count 4.28(L) 4.60 - 5.80 X10*6/uL [facility] Hemoglobin 13.4(L) 14.0 - 18.0 g/dl [facility] Hematocrit 40.8(L) 42.0 - 52.0 % [facility] Mean Corpuscular Volume 95.3 80.0 - 98.0 fL [facility] Mean Corpuscular Hemoglobin 31.3 27.0 - 33.0 pg [facility] Mean Corpuscular HGB Conc 32.8 31.0 - 36.0 g/dl [facility] Red Cell Distribution Width 14.3 11.0 - 16.0 % [facility] Platelet Count 139(L) 160 - 400 X10*3/uL [facility] Mean Platelet Volume 13.6(H) 9.4 - 12.4 fL [facility] Neutrophils Percent Auto 61.9 45 - 73 % [facility] Imm Gran Pct Auto 0.3 0.0 - 0.4 % [facility] Lymphocytes Percent Auto 24.0 20 - 40 % [facility] Monocytes Percent Auto 8.1 2 - 11 % [facility] Eosinophils Percent Auto 4.9(H) 0 - 4 % [facility] Basophils Percent Auto 0.8 0 - 2 % [facility] NRBC Pct Auto 0.0 0.0 - 0.2 /100WBC [facility] Neutrophils Absolute Auto 4.1 2.0 - 8.3 x10*3/uL [facility] Imm Gran Abs Auto 0.02 0.00 - 0.03 X10*3/uL [facility] Lymphocytes Absolute Auto 1.6 1.2 - 4.9 X10*3/uL [facility] Monocytes Absolute Auto 0.5 0.1 - 1.2 X10*3/uL [facility] Eosinophils Absolute Auto 0.3 0.0 - 0.4 X10*3/uL [facility] Basophils Absolute Auto 0.1 0.0 - 0.2 X10*3/uL [facility] NRBC Abs Auto 0.000 0.0 - 0.012 X10*3/uL [facility] Blood Venous blood specimen / Unknown 04/07/2024 8:15 AM EST 04/07/2024 2:04 PM EST us Zachariah Villa MD LAB BLOOD ORDERABL ES Final Result [facility] [address] [place] [phone] * (ABNORMAL) Lipid Panel, Standard (04/07/2024 8:15 AM EST) Triglycerides 174(H) <150 mg/dL [facility] Comment:Desirable Triglyceri de: less than 150 mg/dLBorderline High Triglyceride 150-199 mg/dLHigh Triglyceride: 200-499 mg/dLVery High Triglyceride: greater than or equal to 5OO mg/dL Cholesterol 187 <200 mg/dL [facility] Comment:Desirable Cholestero l: less than 200 mg/dLBorderline High Cholesterol: 200-239 mg/dLHigh Cholesterol: greater than 239 mg/dL LDL Cholesterol Calculated 112(H) <100 mg/dL [facility] Comment:Desirable LDL: less than 100 mg/dLNear Optimal/Above Optimal LDL: 110- 129 mg/dLBorderline High LDL: 130-159 mg/dLHigh LDL: 160-189 mg/dLVery High LDL: greater than or equal to 190 mg/dL HDL Cholesterol 41 >40 mg/dL [facility] Comment:Desirable HDL: great er than 40 mg/dL Note: This HDL assay may give artificially low results in patients with liver disease. Blood Venous blood specimen / Unknown 04/07/2024 8:15 AM EST 04/07/2024 2:04 PM EST us Zachariah Villa MD LAB BLOOD ORDERABL ES Final Result [facility] [address] [place] [phone] * (ABNORMAL) Comprehensive Metabolic Panel (04/07/2024 8:15 AM EST) Sodium 139 135 - 145 mmol/L [facility] Potassium 3.6 3.3 - 5.1 mmol/L [facility] Chloride 106 96 - 108 mmol/L [facility] Carbon Dioxide 26 22 - 29 mmol/L [facility] Anion Gap 11(L) 12 - 20 [facility] Urea Nitrogen (BUN) 18(H) 9 - 16 mg/dL [facility] Creatinine, Serum 1.29 0.5 - 1.4 mg/dL [facility] Estimated Glomerular Filt Rate 57 [facility] Comment:Chronic Kidney Disea se: Estimated GFR < 60 mL/min/[id number] Kidney Disease: Estimated GFR < 15 mL/min/1.73m2 Glucose 93 60 - 115 mg/dL [facility] Calcium 9.0 8.4 - 10.2 mg/dL [facility] Bilirubin, Total 0.4 0.0 - 1.0 mg/dL [facility] Aspartate Amino Transferase 29 5 - 37 U/L [facility] Alanine Aminotransferase 29 0 - 40 U/L [facility] Total Protein 6.9 6.5 - 8.0 g/dL [facility] Albumin Level 3.9 3.5 - 5.0 g/dL [facility] Alkaline Phosphatase 58 39 - 117 U/L [facility] Blood Venous blood specimen / Unknown 04/07/2024 8:15 AM EST 04/07/2024 2:04 PM EST us Zachariah Villa MD LAB BLOOD ORDERABL ES Final Result Performing Organization Address [facility] Co de Phone Number [facility] [address] [place] [phone] * Hepatitis C Antibody with Reflex to HCV, RNA, Quantitative, Real-Time PCR (04/07/2024 8:05 AM EST) Hepatitis C Antibody Nonreactive Nonreactive [facility] Comment:Antibodies to HCV no t detected; does not exclude early acuteHCV infection. Blood Venous blood specimen / Unknown 04/07/2024 8:05 AM EST 04/07/2024 2:04 PM EST us Zachariah Villa MD LAB BLOOD ORDERABL ES Final Result Performing Organization Address [facility] Co de Phone Number [facility] [address] [place] [phone] * HIV-1/2 Antigen and Antibodies, Fourth Generation, with Reflexes (04/07/2024 8:05 AM EST) HIV AB/AG Nonreactive Nonreactive [facility] Comment:HIV-1 p24 Ag and/or HIV-1/HIV-2 Ab not detected.A test result that is nonreactive does not exclude thepossibility of exposure to or infection with HIV-1 and/orHIV-2. Nonreactive results in this assay for individualswith prior exposure to HIV-1 and/or HIV-2 may be due toantigen and antibody levels that are below the limit ofdetection of this assay.The [employer] HIV Ag/Ab Combo assay result andsupplemental assay results should be interpreted inconjunction with the patient's clinical presentation,history and other laboratory results. If the results areinconsistent with clinical evidence, additional testing issuggested to confirm the result. Blood Venous blood specimen / Unknown 04/07/2024 8:05 AM EST 04/07/2024 2:04 PM EST us Zachariah Villa MD LAB BLOOD ORDERABL ES Final Result [facility] [address] [place] [phone] from Last 3 Months Insurance [facility] , [address] [place] [address] Care Teams Title I Assistant Relationship Specialty Start Date End Date Zachariah Lopez MD [address] [place] [address] PCP - General Internal Medicine 12/13/23
[2024-07-02 07:28] VITALS: BP 136/71; PULSE 79; RESP 16; TEMP 36.6; O2SAT 100; BMI 35.1
[2024-07-02] MEDS: Lactated Ringers 1,000 ML 100 ML IVCONT (08:09)
--- NOTE | 2024-07-02 08:36 | MHC.SHP ---
Pre-Procedural Eval Section A - 24 Hr Update-Section A only Date of Service: 07/02/24 Section B - Complete if H&P > 30 days Chief Complaint: screening Relevant Family History (Specify if Yes): No Relevant Social History: None Present Medications: see Short Stay Collaborative assessment Medical History: Significant History ( Obesity LVH (left ventricular hypertrophy) BRUNO (obstructive sleep apnea) Paroxysmal atrial fibrillation) History of Previous Operations: Relevant previous surgery/procedure and date(s) (H/O eye surgery H/O inguinal hernia repair) Allergies: Allergies Allergy/AdvReac Type Severity Reaction Status Date / Time No Known Allergies Allergy Verified 03/07/24 14:37 Review of Systems Sugical H&P ROS: Negative: Constitution, Cardiovascular, Respiratory, Neurological, Psychiatric, Hem-Onc, Allergic/Immunologic, Gastrointestinal, Genitourinary, Musculoskeletal, Integumentary, Endocrine and Eyes/Ears/Nose/Throat Exam Surgical H&P Exam: Normal: HEENT, Normal: Heart, Normal: Lungs, Normal: Extremities, Normal: Abdomen, Normal: Skin and Normal: Neurological Plan Diagnosis/Plan: Unchanged I have reviewed the history and physical and performed a pertinent physical examination on my patient. No changes have occurred unless specified. Time Spent With Patient Time: Total time managing care of this patient today ____ minutes.
--- NOTE | 2024-07-02 09:04 | W.PM.OPN ---
Operative Note Operative Note Date of Service: 07/02/24 Narrative: Operative Information Procedure Description: Colonoscopy Indication: screening Anesthesia: MAC COLONOSCOPY Instrument: Olympus variable stiffness pediatric scope 190L Colonoscopy Monitoring: Vital signs and clinical assessment, continuous EKG monitoring, Pulse oximetry, Carbon Dioxide monitoring and blood pressure monitoring were done throughout the procedure. Colon withdrawal time was 10 minutes. Procedure: The patient was placed in the left lateral decubitis position and pre-procedure medications were administered. After a digital rectal examination of the ano-rectum, the video colonoscope was inserted into the rectum and advanced through the colon to the cecum/TI. The colonoscope was slowly withdrawn in a retrograde panoramic fashion and the colon mucosa was carefully examined including a retroflexed view of the rectum. Findings and interventions are described below. Procedure Difficulty: easy Findings: Terminal Ileum-normal Cecum: 4-5 mm sessile polyp removed with cold forceps Ascending Colon: 5-6 mm sessile polyp removed with cold forceps Transverse Colon -normal Descending Colon:normal Sigmoid Colon: moderate diverticulosis Rectum: Retroflexion with medium sized internal hemorrhoids seen, grade I Anorectum - normal Intervention: cold forceps Colon preparation: [place] Bowel Preparation Scale Right colon; 2 Transverse colon: 2 Left colon; 2 (0 = Unprepared colon segment with mucosa not seen due to solid stool that cannot be cleared. 1 = Portion of mucosa of the colon segment seen, but other areas of the colon segment not well seen due to staining, residual stool and/or opaque liquid. 2 = Minor amount of residual staining, small fragments of stool and/or opaque liquid, but mucosa of colon segment seen well. 3 = Entire mucosa of colon segment seen well with no residual staining, small fragments of stool or opaque liquid) Impression and Post Procedure Diagnosis: diverticulosis colon polyps internal hemorrhoids Plan: High fiber diet leaflet Avoid straining at stool, epsom salts and sitz bath, anusol supps or cream Repeat Colonoscopy in 5 years if pre cancerous polyps, 10 yrs if non pre cancerous or earlier if clinically indicated Above findings were reviewed with the patient and relevant handouts were provided if indicated.
[2024-07-02 09:08] VITALS: BP 108/57; PULSE 79; RESP 16; TEMP 36.1; O2SAT 99
[2024-07-02 09:15] VITALS: BP 123/67; PULSE 62; RESP 16; TEMP 36.4; O2SAT 99
--- NOTE | 2024-07-02 09:42 | HO.POSTANES ---
Post Anesthesia Evaluation Post Anesthesia Evaluation Date of Service: 07/02/24 Vital Signs: Vital Signs Temp Pulse Resp BP Pulse Ox O2 Del Method 07/02/24 09:15 97.6 F 62 16 123/67 99 Room Air 07/02/24 09:08 97 F 79 16 108/57 L 99 Room Air 07/02/24 07:28 98 F 79 16 136/71 100 Room Air Anesthesia: Monitored Mental Status: Awake Pain Control: Satisfactory Nausea/Vomiting: None Hydration: Adequate Anesthesia-Related Issues: No Anes. Related Issues
== END 2024-07-02 10:31 | disposition home or self-care (01) ==
PROVIDERS: PCP Internal Medicine; Visit Provider Internal Medicine Gastroenterology
PROC: 0DJD8ZZ Inspection of Lower Intestinal Tract, Via Natural or Artificial Opening Endoscopic (ICD-10-PCS; CPT 45378; principal; 2024-07-02 08:30)
DX: Z12.11 Encounter for screening for malignant neoplasm of colon (principal); K63.5 Polyp of colon; K57.30 Diverticulosis of large intestine without perforation or abscess without bleeding; K64.0 First degree hemorrhoids; I42.2 Other hypertrophic cardiomyopathy; I48.0 Paroxysmal atrial fibrillation; G47.33 Obstructive sleep apnea (adult) (pediatric); E66.9 Obesity, unspecified; Z68.35 Body mass index [BMI] 35.0-35.9, adult; Z99.89 Dependence on other enabling machines and devices; Z98.890 Other specified postprocedural states
CPT/HCPCS: 45380; 88305; J2003; J2704

== ENCOUNTER → 2024-07-02 07:24 | Outpatient (BNV) | payer OTHER, SELFPAY | PROVIDERS: PCP Internal Medicine; Visit Provider Internal Medicine Gastroenterology | DX: Z12.11 Encounter for screening for malignant neoplasm of colon (principal); K63.5 Polyp of colon; K57.30 Diverticulosis of large intestine without perforation or abscess without bleeding; K64.0 First degree hemorrhoids | CPT/HCPCS: 45380 ==

== ENCOUNTER 2024-11-05 08:26 | Outpatient (REF) | payer OTHER, SELFPAY ==
--- OUTSIDE RECORDS SUMMARY | 2024-11-05 08:47 | XMS_ITS | Clinical Summary ---
Author Organization [employer] Address [address] [place] [address] Care Team Providers Care Sugar Controller Name Role Phone Zachariah Lopez MD Primary [...] (40 mg) by mouth Once per day. 90 tablet 3 5 08/13/19 26 Active Active Problems Problem Noted Date Diagnosed Date Mixed hyperlipidemia 04/15/2024 Assessment & Plan (08/12/2024 3:07 PM EDT): Patient stopped taking it over 1 month ago, risk vs benefits were discussed, he will restart therapy, new labs ordered to be done in 2 months Assessment & Plan (04/15/2024 1:55 PM EST): [...] 81mg, centrum OTC Followed by cardiology at [place], will place referral Needs screening colon cancer [...] Encounters Date Type Department Care Team Description 08/12/2024 2:45 PM EDT Telemedicine [facility] [address] [place] [address] Zachariah Lopez MD Mixed hyperlipidemia (Primary Dx) 08/12/2024 Travel 08/11/2024 Telephone [facility] [address] [place] [phone] Zachariah Lopez MD Insurance from Last 3 Months Immunizations Immunization Administration Dates Next Due Pfizer Covid-19 Vaccine [...] your housing situation today? I have mila jimi 03/27/[address] you li [...] 64 04/03/2024 1:54 PM EST Temperature 36.1 C (97 F) 04/03/2024 1:54 PM EST Respiratory Rate 16 04/03/2024 1:54 PM EST Oxygen Saturation 98% 03/06/2023 3:32 PM EDT Inhaled Oxygen Concentration - - Weight 105 kg (230 lb 9.6 oz) 04/03/2024 1:54 PM EST Height 172.7 cm (5' 8 ) 04/03/2024 1:54 PM EST Body Mass Index 35.06 04/03/2024 1:54 PM EST Plan of Treatment Upcoming Encounters Date Type Department Care Team ([facility] st Contact Info) Description 11/12/2024 2:00 PM EDT Telemedicine [facility] [address] [place], [place] [phone] Zachariah Lopez MD [address] [place], [place] [phone] Health Maintenance Due Date Last Done Comments CT Colonography 1966 Colonoscopy 1966 Colorectal Cancer Screening 1966 FIT DNA/Cologuard 1966 FIT 1966 FOBT 1966 Sigmoidoscopy 1966 Disability Screening 1966 Hepatitis B Vaccines (1 of 3 - 19+ 3-dose series) 1985 Pneumococcal Vaccine: 50+ Years (1 of 1 - PCV) 02/23/2016 Zoster Vaccines (1 of 2) 02/23/2016 COVID-19 Vaccine (4 - 2023-2 5 season) 2024 05/02/2022, 10/03/2020, 09/12/2020 Influenza Vaccine (Season Ended) 2025 Depression Screening 04/03/2025 04/03/2024, 04/03/2024 SDOH Screening 04/03/2025 04/03/2024 Tobacco Screening 04/03/2025 04/03/2024 Alcohol/Substance Use Screening 08/12/2025 08/12/2024 Lipid Panel 04/07/2029 04/07/2024 DTaP/Tdap/Td Vaccines (3 [...] patient's age to complete this topic Meningococcal B Vaccine Aged Out No l onger eligible based on patient's age to complete [...] Procedure Name Priority Date/Time Associated Diagnosis Comments LIPID PANEL, STANDARD Routine 04/07/2024 8:15 AM EST Obesity (BMI 35.0-39.9 without comorbidity) HEPATITIS C AB W/REFL TO HCV RNA, QN, PCR Routine 04/07/2024 8:05 AM EST Obesity (BMI 35.0-39.9 without comorbidity) HIV 1/2 ANTIGEN/ANTIBODY, FOURTH GENERATION W/RFL Routine 04/07/2024 8:05 AM EST Obesity (BMI 35.0-39.9 without comorbidity) from Last 3 Months or Most Recently Relevant to Health Maintenance Results * (ABNORMAL) Lipid Panel, Standard (04/07/2024 8:15 AM EST) Triglycerides 174(H) <150 mg/dL [facility] Comment:Desirable Triglyceri de: less than 150 mg/dLBorderline High Triglyceride 150-199 mg/dLHigh Triglyceride: 200-499 mg/dLVery High Triglyceride: greater than or equal to 5OO mg/dL Cholesterol 187 <200 mg/dL [facility] Comment:Desirable Cholestero l: less than 200 mg/dLBorderline High Cholesterol: 200-239 mg/dLHigh Cholesterol: greater than 239 mg/dL LDL Cholesterol Calculated 112(H) <100 mg/dL [facility] Comment:Desirable LDL: less than 100 mg/dLNear Optimal/Above Optimal LDL: 110- 129 mg/dLBorderline High LDL: 130-159 mg/dLHigh LDL: 160-189 mg/dLVery High LDL: greater than or equal to 190 mg/dL HDL Cholesterol 41 >40 mg/dL [facility] Comment:Desirable HDL: grea ter than 40 mg/dL Note: This HDL assay may give artificially low results in patients with liver disease. Blood Venous blood specimen / Unknown 04/07/2024 8:15 AM EST 04/07/2024 2:04 PM EST Zachariah Villa MD LAB BLOOD ORDERABL ES Final Result Performing Organization Address [facility] Co de Phone Number [facility] [address] [place] [phone] Hepatitis C Antibody with Reflex to HCV, RNA, Quantitative, Real-Time PCR (04/07/2024 8:05 AM EST) Hepatitis C Antibody Nonreactive Nonreactive [facility] Comment:Antibodies to HCV no t detected; does not exclude early acuteHCV infection. Blood Venous blood specimen / Unknown 04/07/2024 8:05 AM EST 04/07/2024 2:04 PM EST Zachariah Villa MD LAB BLOOD ORDERABL ES Final Result Performing Organization Address [facility] Co de Phone Number [facility] [address] [place] [phone] HIV-1/2 Antigen and Antibodies, Fourth Generation, with Reflexes (04/07/2024 8:05 AM EST) HIV AB/AG Nonreactive Nonreactive [facility] Comment:HIV-1 p24 Ag and/or HIV-1/HIV-2 Ab not detected.A test result that is nonreactive does not exclude thepossibility of exposure to or infection with HIV-1 and/orHIV-2. Nonreactive results in this assay for individualswith prior exposure to HIV-1 and/or HIV-2 may be due toantigen and antibody levels that are below the limit ofdetection of this assay.The [email or web address] HIV Ag/Ab Combo assay result andsupplemental assay results should be interpreted inconjunction with the patient's clinical presentation,history and other laboratory results. If the results areinconsistent with clinical evidence, additional testing issuggested to confirm the result. Blood Venous blood specimen / Unknown 04/07/2024 8:05 AM EST 04/07/2024 2:04 PM EST Zachariah Villa MD LAB BLOOD ORDERABL ES Final Result [facility] [address] [place] [phone] from Last 3 Months or Most Recently Relevant to Health Maintenance Insurance [facility] [facility] Care Teams Sugar Controller Relationship Specialty Start Date End Date Zachariah Lopez MD [address] [place] [address] PCP - General Internal Medicine 12/13/23
[2024-11-05 14:39] LABS: Alanine Aminotransferase 38 U/L (0-40); Albumin Level 4.2 g/dL (3.5-5.0); Anion Gap 9 (12-20); Aspartate Amino Transferase 26 U/L (5-37); Bilirubin Total 0.6 mg/dL (0.0-1.0); Blood Urea Nitrogen 20 mg/dL (9-16); Calcium 8.9 mg/dL (8.4-10.2); Carbon Dioxide 28 mmol/L (22-29); Chloride 106 mmol/L (96-108); Estimated Glomerular Filt Rate 59; Glucose Random 103 mg/dL (60-115); Potassium 3.8 mmol/L (3.3-5.1); Sodium 139 mmol/L (135-145); Triglycerides 66 mg/dL (<150)
[2024-11-05 14:40] LABS: Alkaline Phosphatase 65 U/L (39-117); Cholesterol 108 mg/dL (<200); HDL Cholesterol 39 mg/dL (>40); LDL Cholesterol Calculated 56 mg/dL (<100)
[2024-11-05 14:55] LABS: PSA,Total (Free>4and<10) 0.64 ng/mL (0.00-4.00)
== END 2024-11-05 08:27 | disposition home or self-care (01) ==
LOC: HO.CHCLDS 08:26
PROVIDERS: Visit Provider Internal Medicine
DX: E78.2 Mixed hyperlipidemia (principal); Z12.5 Encounter for screening for malignant neoplasm of prostate
CPT/HCPCS: 36415; 80053; 80061; 84153